=== PATIENT | male | born 1975 | race Caucasian/White ===

== ENCOUNTER → 2018-02-07 14:29 | Outpatient (CLI) | payer MEDICAID, SELFPAY ==
[2018-02-07 16:38] LABS: Valproic Acid (Depakene) Level 37 ug/mL (50-100)
== END ==
PROVIDERS: Family Provider Family Medicine; PCP Family Medicine
DX: Z79.899 Other long term (current) drug therapy (principal)
CPT/HCPCS: 36415; 80164

== ENCOUNTER 2018-08-05 19:19 | Emergency (ER) | payer MEDICAID, SELFPAY ==
[2018-08-05 19:19] VITALS: BP 108/79; PULSE 90; RESP 16; TEMP 36.7; O2SAT 97; BMI 30.2
--- NOTE | 2018-08-05 19:51 | EKG12_ITS ---
Test Reason : SYNCOPE Blood Pressure : / mmHG Vent. Rate : 080 BPM Atrial Rate : 080 BPM P-R Int : 132 ms QRS Dur : 080 ms QT Int : 358 ms P-R-T Axes : 041 051 044 degrees QTc Int : 412 ms Normal sinus rhythm Normal ECG Confirmed by KELLY SALAZAR, AGNES ([id number]), mapping editor SUDHAKAR WILLIAM ([id number]) on 08/08/2018 9:10:07 AM Referred By: JOSEFINA Confirmed By:AGNES MENDOZA MD
--- NOTE | 2018-08-05 19:52 | CT_ITS ---
STUDY: CT BRAIN WITHOUT CONTRAST REASON FOR EXAM: Male, 43 years old. Syncope. History of prior CVA. 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 RADIATION DOSAGE (If Supplied By Facility): CTDIvol = ( 44.99 ) mGy, DLP = ( 779.24 ) mGycm TECHNIQUE: Transaxial CT imaging of the brain was performed without administration of intravenous contrast material. Individualized dose optimization techniques were used for this CT. COMPARISON: None. FINDINGS: There are multiple surgical clips noted in the posterior fossa. Evaluation is limited by streak artifact from the clips. There is an old right cerebellar infarct with encephalomalacia. There is no acute bleed or infarct. There are mild chronic ischemic changes. There is mild hydrocephalus noted. There is a right temporal approach shunt catheter with its tip in the left lateral ventricle. The visualized paranasal sinuses are clear. The mastoid air cells are well aerated. There is no skull fracture. CT/Brain/Head without Contrast IMPRESSION: Evaluation is limited by streak artifact from the surgical clips. Right temporal approach shunt catheter with its tip in the left lateral ventricle. Mild hydrocephalus. 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 No acute bleed or infarct. Electronically Signed: Chino Lindsey, at 20:42 EDT Tel , Service support ,
--- NOTE | 2018-08-05 19:52 | RAD_ITS ---
STUDY: SHUNTOGRAM. REASON FOR EXAM: Male, 43 years old. Shunt placement check. Syncope. TECHNIQUE: Lateral view of the skull as well as an AP view of the chest and abdomen were performed. COMPARISON: CT of the brain, August 05, 2018. FINDINGS: The findings demonstrate a right occipital shunt extending towards mid brain. The catheter is seen to extend downward along the posterior left neck onto the right chest. Again seen are multiple surgical clips along the skull base and occipital region. A catheter is seen to extend downward along the left chest wall. It is somewhat thickened and irregular due to surrounding calcification. There is no obvious disruption. The catheter can be followed downward along the lateral right chest into the right mid abdomen. The lungs are clear. The abdomen is without evidence of acute abnormality. RAD/Shuntogram/Prec Placed Shunt IMPRESSION: Shuntogram as described. Electronically Signed: Ant Bernabe DO at 21:19 EDT Tel [phone], Service support ,
--- NOTE | 2018-08-05 19:55 | ED.DCSUM_ITS ---
- ER Visit Summary Date of Service: 08/05/18 Chief Complaint: Syncopal episode History of Present Illness: The patient is a 43 M who presents for evaluation after a syncopal episode. Per the mother, patient was sitting at the table and suddenly became pale and diaphoretic. He had a syncopal episode and was out approximately 4 minutes. EMS was called. Patient is denying any headache, chest pain, shortness of breath, abdominal pain, nausea or vomiting, weakness or numbness in the arms or legs. He has not eaten today. He is not taking his divalproex for bipolar disorder in 10 days because he is out of it. 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 Patient denies any alcohol or drug use. He currently is complaining that he starting to feel lightheaded again, as well as sweaty. Physical Examination: Vital signs: afebrile, hemodynamically stable, no hypoxia on room air General: well nourished, well developed, in no distress Skin: warm, pale, diaphoretic, no rash HEENT: normocephalic and atraumatic; PERRL, EOMI, moist mucous membranes Cardiovascular: regular rate and rhythm without murmurs, no peripheral edema, 2+ pulses all distal extremities Respiratory: No increased work of breathing, lungs are clear to auscultation bilaterally, no rales, rhonchi or wheezing Abdominal: Abdomen is soft, nontender with normoactive bowel sounds, no guarding or rebound, no pulsatile masses MSK: Moves all extremities, no deformities, normal strength Neuro: Awake and alert, oriented ?4. No facial droop, sensation and motor function intact and symmetric Test Results: Abnormal Lab Results 08/05/18 08/05/18 08/05/18 20:10 20:10 20:10 WBC 9.7 RBC 4.31 L Hgb 13.3 Hct 39.7 L MCV 92.1 MCH 30.9 MCHC 33.5 RDW 13.8 RDW Differential 46.5 H Plt Count 280 MPV 10.3 Immature Gran % (Auto) 0.200 Neut % (Auto) 57.9 Lymph % (Auto) 32.3 [place] % (Auto) 6.9 Eos % (Auto) 2.5 Baso % (Auto) 0.2 Absolute Neuts (auto) 5.6 Absolute Lymphs (auto) 3.14 Total Counted Not Reportable PT 13.6 INR 1.1 APTT 27.4 Sodium 138 Potassium 3.8 Chloride 107 Carbon Dioxide 25.0 Anion Gap 6 BUN 15 Creatinine 1.07 Estim Creat Clear Calc 78.67 Est GFR (MDRD) Af Amer 96 Est GFR (MDRD) Non-Af 79 BUN/Creatinine Ratio 14.0 Glucose 102 Calcium 8.5 Magnesium 2.0 Total Bilirubin 0.40 AST 14 L ALT 27 Alkaline Phosphatase 93 Troponin I < 0.015 Total Protein 7.9 Albumin 4.1 Globulin 3.8 Albumin/Globulin Ratio 1.1 TSH 3.01 Clinical Impression(s) from Imaging Studies Brain CT 08/05/18 19:52 IMPRESSION: Evaluation is limited by streak artifact from the surgical clips. Right temporal approach shunt catheter with its tip in the left lateral ventricle. Mild hydrocephalus. 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 No acute bleed or infarct. Electronically Signed: Chino Lindsey, at 20:42 EDT Tel , Service support , Shuntogram 08/05/18 19:52 IMPRESSION: Shuntogram as described. Electronically Signed: Ant Bernabe DO at 21:19 EDT Tel [phone], Service support , Medications Given Discontinued Medications Sodium Chloride () 1,000 mls @ 1,000 mls/hr IV .Q1H ONE Stop: 08/05/18 20:50 Last Admin: 08/05/18 20:07 Dose: 1,000 mls/hr Ondansetron HCl (Zofran) 4 mg IV X1 ONE Stop: 08/05/18 19:52 Last Admin: 08/05/18 20:07 Dose: 4 mg Emergency Department Course and Treatment: Patient presents for evaluation after a syncopal episode. At time of initial evaluation, patient was having presyncope symptoms with diaphoresis and lightheadedness as well as appearing pale. This resolved after patient was laid into a semi-Fowlers position. Work- up performed for syncope. EKG showed a sinus rhythm with no ischemic changes, ectopy or proarrhythmic morphology. Troponin negative. CBC and CMP were unremarkable. Patient received IV fluids for hydration and Zofran for nausea. A shuntogram was performed and showed no kinks or breaks. CT of the brain showed mild hydrocephalus and evidence of patient's prior chronic brain issues. On reevaluation she was feeling 100% better. Skin was warm and dry, he ate a turkey sandwich, he had no complaints and no recurrence of his symptoms. Patient then discussed that he had not taken his Remeron for 10 days and took the first dose syncopal episode that sounds most consistent with vasovagal syncope. Patient was advised to be consistent with his medications. Patient requested discharge, and at this time no findings on work-up that would require admission or further evaluation. Patient discharged home with symptoms resolved. Treatment Plan: [] Disposition: [] Impression: Vasovagal syncope This note was generated with [employer] dictation software. It may contain incorrect words, spelling, and punctuation that were not noted in review of the chart prior to signing ED Disposition - Plan for ED Patient: Disposition: Home or Assisted Living Instructions: ED Syncope Vasovagal Referrals: Blank Joe DO [Primary Care Provider] - 1-2 Days if not improving Additional Instructions: Please return to the emergency department if you have any further concerns. Take your medications as prescribed and do not miss doses. If you have any worsening of your condition or any new concerning symptoms, please return immediately to the emergency department for another evaluation.
--- NOTE | 2018-08-05 19:56 | ED.RN ---
NO OLD EKGS IN MUSE
[2018-08-05 20:00] VITALS: O2SAT 98
[2018-08-05] MEDS: Ondansetron 4 MG/2 ML Vial IV (20:07)
[2018-08-05] MEDS: 0.9% Normal Saline 1,000 ML 1000 ML IV (20:07)
[2018-08-05 20:27] LABS: Absolute Lymphocyte Count 3.14 X10^3/ul (0.83-4.51); Absolute Neutrophil Count 5.6 X10^3/uL (2.0-7.7); Basophil# 0.02 X10^3/uL; Basophil% 0.2 % (0-1); Eosinophil# 0.24 X10^3/uL; Eosinophils% 2.5 % (0-5); Hematocrit 39.7 % (40-54); Hemoglobin 13.3 g/dl (13.0-16.5); Lymphocyte # 3.14 X10^3/ul (4.0); Lymphocyte % 32.3 % (19-41); Mean Corp Hgb Conc 33.5 g/gl (32-36); Mean Corpuscular Hgb 30.9 pg (27.0-32.0); Mean Corpuscular Volume 92.1 fL (80-94); Mean Platelet Vol. 10.3 fl (6.2-12.0); Monocyte# 0.67 X10^3/uL; Monocyte% 6.9 % (0-10); Neutrophil # 5.63 X10^3/uL (2.7-7.7); Neutrophil % 57.9 % (47-70); Platelet Count 280 K/mm3 (150-450); RBC Distribution Width CV 13.8 % (11.6-14.6); RBC Distribution Width SD 46.5 fl (35.1-43.9); Red Blood Count 4.31 M/mm3 (4.6-6.2); White Blood Count 9.7 K/mm3 (4.4-11.0)
[2018-08-05 20:31] LABS: POSITIVE COUNT NO; POSITIVE DIFFERENTIAL NO; POSITIVE MORPHOLOGY NO
[2018-08-05 20:36] LABS: International Normalized Ratio 1.1; Prothrombin Time (Protime)PT. 13.6 SECONDS (11.7-14.9)
[2018-08-05 20:37] LABS: Partial Thromboplast Time 27.4 Seconds (24.1-36.2)
[2018-08-05 20:47] LABS: ALB/GLOB Ratio 1.1 RATIO (0.9-2.4); AST(SGOT) 14 U/L (15-37); Alanine Aminotransfer ALT/SGPT 27 U/L (16-61); Albumin, Serum 4.1 g/dL (3.2-5.0); Alkaline Phosphatase 93 U/L (45-117); Anion Gap 6 (5-15); BUN 15 mg/dL (7-18); Calcium,Total 8.5 mg/dL (8.5-10.1); Chloride 107 mmol/L (98-107); Creatinine, Serum 1.07 mg/dL (0.70-1.30); EST Glomerular Filtration Rate 79 mL/min (>60); Est Glom Filt Rate - Afr Amer 96 mL/min (>60); Estimated Creatinine Clearance 78.67 ml/min; Globulin 3.8 g/dL (2.2-4.2); Glucose 102 mg/dL (74-106); Potassium 3.8 mmol/L (3.5-5.1); Protein, Total 7.9 g/dL (6.4-8.2); Sodium Level 138 mmol/L (136-145); Thyroid Stim Hormone (TSH) 3.01 uIU/mL (0.358-3.74)
[2018-08-06 00:15] VITALS: BP 109/67; PULSE 86; RESP 21; O2SAT 96
== END 2018-08-06 00:16 | disposition home or self-care (01) ==
PROVIDERS: Emergency Provider Emergency Medicine; Family Provider Family Medicine; PCP Family Medicine
DX: R55 Syncope and collapse (principal); G91.9 Hydrocephalus, unspecified; I10 Essential (primary) hypertension; R11.0 Nausea; F31.9 Bipolar disorder, unspecified; Z72.0 Tobacco use; Z79.899 Other long term (current) drug therapy; Z98.2 Presence of cerebrospinal fluid drainage device
CPT/HCPCS: 36415; 70450; 75809; 80053; 83735; 84443; 84484; 85025; 85610; 85730; 93005; 96361; 96374; 99285; J7030; A4216; J2405